=== PATIENT | male | born 1940 | race Caucasian/White ===

== ENCOUNTER 2023-04-17 20:46 | Emergency (ER) | payer MEDICARE | END 2023-04-17 21:14 | disposition left against medical advice (07) | LOC: CSHERS 20:46 | DX: S01.81XA Laceration without foreign body of other part of head, initial encounter (principal); F03.90 Unspecified dementia, unspecified severity, without behavioral disturbance, psychotic disturbance, mood disturbance, and anxiety; W19.XXXA Unspecified fall, initial encounter | CPT/HCPCS: 12011; 99283 ==

== ENCOUNTER 2023-05-12 09:39 | Emergency (ER) | payer MEDICARE ==
[2023-05-12 10:36] LABS: #Eosinphils 0.1 10x3/uL (0.0-0.5); #Monocytes 0.5 10x3/uL (0.0-1.1); %Basophils 0.2 % (0.0-2.0); %Eosinophils 2.2 % (0.0-6.0); %Lymphocytes 25.9 % (18.0-47.0); %Monocytes 9.9 % (0.0-10.0); %Neutrophils 61.4 % (40.0-75.0); Hematocrit 35.6 % (38.8-50.0); Hemoglobin 12.1 g/dL (13.5-17.5); Mean Corpuscular Hemoglobin 31.4 pg (27.0-33.0); Mean Corpuscular Volume 92.5 fl (81.2-95.1); RBC Distribution Width 13.2 % (11.5-14.5); Red Blood Cell (RBC) Count 3.85 10x6/uL (4.32-5.72); White Blood Cell (WBC) Count 4.9 10x3/uL (3.5-10.5)
[2023-05-12 10:37] LABS: Mean Platelet Volume 8.9 fl (7.4-10.4); Platelet Count 127 10x3/uL (150-450)
[2023-05-12 10:44] LABS: ALT (SGPT) 12 U/L (8-55); AST (SGOT) 16 U/L (5-34); Albumin 3.7 g/dL (3.4-4.8); Alkaline Phosphatase 41 U/L (40-110); Anion Gap 13 mmol/L (10-20); BUN (Urea Nitrogen) 21 mg/dL (8.4-25.7); Bilirubin, Total 0.7 mg/dL (0.2-1.2); Calc. Creatinine Clearance 0 mL/min (70-130); Calcium 8.5 mg/dL (7.8-10.44); Carbon Dioxide 21 mmol/L (23-31); Chloride 109 mmol/L (98-107); Estimated GFR 68; Globulin 2.6 g/dL (2.4-3.5); Glucose 101 mg/dL (83-110); Potassium 4.2 mmol/L (3.5-5.1); Protein, Total 6.3 g/dL (5.8-8.1); Sodium 139 mmol/L (136-145)
== END 2023-05-12 11:38 | disposition home or self-care (01) ==
LOC: CSHERS 09:39
DX: E86.0 Dehydration (principal); R45.82 Worries
CPT/HCPCS: 80053; 83735; 85025; 99284